=== PATIENT | male | born 1985 | race Caucasian/White ===

== ENCOUNTER → 2016-12-03 | Outpatient (CLI) | payer OTHER ==
[2016-12-03 09:57] LABS: ANION GAP 12 (5-19); BLOOD UREA NITROGEN 22 mg/dL (7-20); CALCIUM 10.4 mg/dL (8.4-10.2); CARBON DIOXIDE 23 mmol/L (22-30); CHLORIDE 108 mmol/L (98-107); CREATININE RESULT 1.27 mg/dL (0.52-1.25); GLUCOSE 82 mg/dL (75-110); SODIUM 143.1 mmol/L (137-145)
[2016-12-03 09:58] LABS: POTASSIUM 4.7 mmol/L (3.6-5.0)
[2016-12-03 12:38] LABS: URINE CREATININE 56.7 mg/dL (24-392)
[2016-12-03 12:44] LABS: CREATININE 1.27 mg/dL (0.52-1.25)
[2016-12-04 12:37] LABS: CREATININE URINE 201.5 mg/dL (Not Estab.)
[2016-12-05 06:35] LABS: PROTEIN TOTAL UR 24HR 664.1 mg/24 hr (30.0-150.0)
[2016-12-05 06:35] LABS: PROTEIN TOTAL UR 24HR 1598.9 mg/24 hr (30.0-150.0)
[2016-12-06 14:39] LABS: A/G RATIO 1.4 (0.7-1.7); ALBUMIN 2 3.7 g/dL (2.9-4.4); ALPHA-1-GLOBULIN 2 0.2 g/dL (0.0-0.4); GAMMA GLOBULIN 0.7 g/dL (0.4-1.8); PROTEIN TOTAL SERUM 6.3 g/dL (6.0-8.5)
== END ==
LOC: OD 08:38
PROVIDERS: ATTEND Internal Medicine Nephrology
DX: R80.9 Proteinuria, unspecified (principal); N28.9 Disorder of kidney and ureter, unspecified
CPT/HCPCS: 36415; 80048; 82570; 82575; 84156; 84165